=== PATIENT | female | born 1980 | race Caucasian/White ===

== ENCOUNTER 2018-08-10 15:51 | Emergency (ER) | payer OTHER ==
[2018-08-10 16:31] VITALS: BP 99/61
--- NOTE | 2018-08-10 16:41 | UC ---
Skin Complaint HPI - HPI Summary HPI Summary: 2 days of blistering rash on arms, legs, back. She did clear some brush at that time but did not notice poison sadie. Rash does not itch but stings. Turns red first then blisters, then it pops and deflates. - History of Current Complaint Chief Complaint: UCSkin Time Seen by Provider: 08/10/18 16:29 Stated Complaint: SKIN CONCERN-POSSIBLE REACTION Hx Obtained From: Patient Hx Last Menstrual Period: approx 1 mo. ago Pain Intensity: 0 Pain Scale Used: 0-10 Numeric Aggravating Factor(s): Touch Alleviating Factor(s): Nothing - Allergy/Home Medications Allergies/Adverse Reactions: Allergies Allergy/AdvReac Type Severity Reaction Status Date / Time No Known Allergies Allergy Verified 08/10/18 16:21 Home Medications: Home Medications Meloxicam 7.5 mg PO DAILY PRN 08/10/18 [History Confirmed 08/10/18] PMH/Surg Hx/FS Hx/Imm Hx - Additional Past Medical History Additional PMH: no chronic issues. Previously Healthy: Yes - Surgical History Surgical History: None - Family History Known Family History: Positive: Non-Contributory - Social History Alcohol Use: Occasionally Substance Use Type: None Smoking Status (MU): Former Smoker When Did the Patient Quit Smoking/Using Tobacco: 2008 - Immunization History Most Recent Tetanus Shot: 4 - 5 YRS AGO Review of Systems All Other Systems Reviewed And Are Negative: Yes Constitutional: Negative: Fever Skin: Positive: Rash Respiratory: Positive: Negative Cardiovascular: Positive: Negative Musculoskeletal: Negative: Arthralgia, Edema, Myalgia Physical Exam Triage Information Reviewed: Yes Appearance: Well-Appearing Vital Signs: Initial Vital Signs Temp 98.3 F 08/10/18 16:24 Pulse 69 08/10/18 16:24 Resp 22 08/10/18 16:24 BP 99/61 08/10/18 16:24 Pulse Ox 100 08/10/18 16:24 Vital Signs Reviewed: Yes Respiratory Exam: Normal Cardiovascular Exam: Normal Musculoskeletal: Positive: No Edema - at UE/LE Skin: Positive: Rashes - blistering rash on erythematous base scattered on arms/ legs. Course/Dx - Course Course Of Treatment: Acute blistering rash that is poison-sadie like. There are few plants that are phyto-chemically reactive, especially with sun , she may have touched including hogweed or parsnip family. Contact dermatitis, moderate. Needs steroid taper. No resp. or eye involvement. vitals good. - Differential Diagnoses - Skin Complaint Differential Diagnoses: Drug Rash, Poison Sadie, Poison Abbott - Diagnoses Provider Diagnosis: Contact dermatitis Discharge - Sign-Out/Discharge Documenting (check all that apply): Patient Departure All imaging exams completed and their final reports reviewed: No Studies - Discharge Plan Condition: Good Disposition: HOME Prescriptions: predniSONE [Prednisone 5 MG TAB] 5 mg PO DAILY 19 Days #32 tablet predniSONE [Prednisone 5 MG TAB] 5 mg PO DAILY 19 Days #32 tablet Patient Education Materials: Poison Sadie (ED) Referrals: Scottie Tatum MD [Primary Care Provider] - Additional Instructions: although i think you have a poison sadie-like reaction, the steroid should help with the inflammatory response. - Billing Disposition and Condition Condition: GOOD Disposition: Home
--- NOTE | 2018-08-13 10:17 | UC ---
- Progress Note Progress Note: please call the pt. may take prednisone as it was prescribed by Zenaida Chu Course/Dx - Diagnoses Provider Diagnoses: Contact dermatitis Discharge - Sign-Out/Discharge Documenting (check all that apply): Patient Departure All imaging exams completed and their final reports reviewed: No Studies - Discharge Plan Condition: Good Disposition: HOME Prescriptions: predniSONE TAB* [Deltasone 10 MG TAB*] 30 mg PO DAILY #12 tab Patient Education Materials: Poison Sadie (ED) Referrals: Scottie Tatum MD [Primary Care Provider] - Additional Instructions: although i think you have a poison sadie-like reaction, the steroid should help with the inflammatory response. - Billing Disposition and Condition Condition: GOOD Disposition: Home
== END 2018-08-10 17:06 | disposition home or self-care (01) ==
LOC: UCCORT 15:51
DX: L25.9 Unspecified contact dermatitis, unspecified cause (principal); Z87.891 Personal history of nicotine dependence
CPT/HCPCS: 99212; G0463